=== PATIENT | male | born 1960 | race Hispanic/Latino ===

== ENCOUNTER 2023-03-24 10:48 | Inpatient (IN) | payer MEDICARE ==
[~2023-03-24 10:48] MED LIST: AMLODIPINE BESY10 MG PO; ATORVASTATIN CA20 MG PO; CARVEDILOL12.5 MG PO; CLOPIDOGREL75 MG PO; DOCUSATE SODIU100 MG PO; FOLIC ACID0.4 MG PO; FUROSEMIDE40 MG PO; HUMALOG MI100 UNIT/2 SQ; IRON PO; ISOSORBIDE DINI20 MG PO; LOSARTAN POTASS25 MG PO; MIRALAX17 GM PO; SEVELAMER CARB800 MG PO; TOUJEO SOL300 UNIT/1 SC; VITAMIN D3 COM1 EACH; [UNRECOGNIZED DRUG - OTHER] PO
[2023-03-24] MEDS ORDERED: SODIUM CHLORIDE 0.9% 500ML 500 ML ONE (11:02)
[2023-03-24] MEDS ORDERED: CEFAZOLIN SODIUM 2 GM ONE (11:03)
[2023-03-24 12:08] LABS: BASOPHILS # (AUTO) 0.1 (0.0-0.1); BASOPHILS % 0.9 % (0.0-1.0); EOSINOPHILS # (AUTO) 0.4 (0.0-0.4); EOSINOPHILS % 4.2 % (0.0-6.0); HEMATOCRIT 44.6 % (38.2-49.6); HEMOGLOBIN 14.4 g/dL (14.0-18.0); LYMPHOCYTES # (AUTO) 1.7 (1.0-3.2); LYMPHOCYTES % 19.9 % (18.0-39.1); MEAN CORPUSCULAR HGB CONC 32.3 g/dL (31-35); MEAN CORPUSCULAR VOLUME 92.9 fL (81-99); MONOCYTES # (AUTO) 0.7 (0.2-0.8); MONOCYTES % 7.9 % (4.4-11.3); NEUTROPHILS # (AUTO) 5.8 (2.1-6.9); NEUTROPHILS % 66.8 % (38.7-80.0); PLATELET COUNT 227 x10e3/uL (140-360); RED CELL DISTRIBUTION WIDTH 14.8 % (11.7-14.4)
[2023-03-24] MEDS ORDERED: MIDAZOLAM HCL 2 MG/2 ML VIAL ONE (12:24)
[2023-03-24] MEDS ORDERED: FENTANYL CITRATE/PF 100MCG/2 ML INJ ONE (12:24)
[2023-03-24 12:35] LABS: ALBUMIN 3.7 g/dL (3.5-5.0); ALBUMIN/GLOBULIN RATIO 1.2 (0.8-2.0); ANION GAP 14.1 mmol/L (8-16); CALCIUM 9.2 mg/dL (8.4-10.2); CREATININE, SERUM 5.47 mg/dL (0.72-1.25); POTASSIUM 5.1 mmol/L (3.5-5.1)
[2023-03-24] MEDS ORDERED: MANNITOL 20 % 500 ML BAG IV ONE (12:45)
[2023-03-24] MEDS ORDERED: HYDROMORPHONE 1MG/1ML INJ ONE (13:12)
[2023-03-24] MEDS ORDERED: ACETAMINOPHEN 1000 MG/100 ML 100 ML IV ONE (13:12)
[2023-03-24] MEDS ORDERED: PROPOFOL IV EMULSION 10 MG/ML 20 ML VIAL ONE (13:46)
[2023-03-24] MEDS ORDERED: GLYCOPYRROLATE INJ 0.2 MG/ML VIAL ONE (13:46)
[2023-03-24] MEDS ORDERED: NEOSTIGMINE 1 MG/ML 10ML VIAL ONE (13:46)
[2023-03-24] MEDS ORDERED: ONDANSETRON HCL INJ 2MG/ML 2ML 2 MG/ML VIAL ONE (13:46)
[2023-03-24] MEDS ORDERED: DEXAMETHASONE SOD PHOS INJ 4 MG/ML SDV ONE (13:46)
[2023-03-24] MEDS ORDERED: LIDOCAINE HCL 2% LOCAL INJ 5 ML SDV VIAL INJ ONE (13:46)
[2023-03-24] MEDS ORDERED: EPHEDRINE SULFATE INJ 50 MG/ML VIAL ONE (13:46)
[2023-03-24] MEDS ORDERED: POVIDONE IODINE 0.05% 0.05 % ML PO ONE (13:46)
[2023-03-24] MEDS ORDERED: DESFLURANE 240 ML BTL INH ONE (13:46)
[2023-03-24] MEDS ORDERED: ROCURONIUM BROMIDE 10 MG/ML 5ML VIAL IV ONE (13:46)
[2023-03-24] MEDS ORDERED: ONDANSETRON HCL INJ 2MG/ML 2ML 2 MG/ML VIAL IV PRN (15:45)
[2023-03-24] MEDS ORDERED: NALOXONE HCL INJ 0.4 MG/ML AMP IV PRN (15:45)
[2023-03-24] MEDS ORDERED: DIPHENHYDRAMINE HCL INJ 50 MG/ML VIAL IM PRN (15:45)
[2023-03-24] MEDS ORDERED: ACETAMINOPHEN 1000 MG/100 ML IV PRN (15:45)
[2023-03-24] MEDS: HYDROMORPHONE 0.2MG/ML-SOD CHL 30ML PCA SYRINGE IV PRN (15:50)
[2023-03-24] MEDS: HYDROMORPHONE 1MG/1ML INJ ONE ×5 (16:06→16:37)
[2023-03-24] MEDS: HYDRALAZINE HCL 20 MG/ML VIAL ONE ×2 (16:13→16:21)
[2023-03-24 16:30] LABS: BASOPHILS # (AUTO) 0.1 (0.0-0.1); BASOPHILS % 0.5 % (0.0-1.0); EOSINOPHILS # (AUTO) 0.2 (0.0-0.4); EOSINOPHILS % 1.5 % (0.0-6.0); HEMATOCRIT 45.6 % (38.2-49.6); HEMOGLOBIN 14.6 g/dL (14.0-18.0); LYMPHOCYTES # (AUTO) 1.6 (1.0-3.2); LYMPHOCYTES % 10.5 % (18.0-39.1); MEAN CORPUSCULAR HEMOGLOBIN 29.9 pg (28-32); MEAN CORPUSCULAR VOLUME 93.3 fL (81-99); MONOCYTES # (AUTO) 0.3 (0.2-0.8); NEUTROPHILS # (AUTO) 12.5 (2.1-6.9); PLATELET COUNT 233 x10e3/uL (140-360); RED BLOOD COUNT 4.89 x10e6/uL (4.3-5.7)
[2023-03-24] MEDS ORDERED: METOCLOPRAMIDE HCL 10 MG/2ML VIAL ONE (16:32)
[2023-03-24] MEDS ORDERED: ONDANSETRON HCL INJ 2MG/ML 2ML 2 MG/ML VIAL IV ONE (16:32)
[2023-03-24 16:45] LABS: ANION GAP 15.8 mmol/L (8-16); CALCIUM 8.9 mg/dL (8.4-10.2); CREATININE, SERUM 5.56 mg/dL (0.72-1.25); POTASSIUM 4.8 mmol/L (3.5-5.1)
[2023-03-24] MEDS: SODIUM CHLORIDE 0.9% 1000ML 1,000 ML IV SCH (17:20)
[2023-03-24] MEDS: SODIUM CHLORIDE 0.9% 250ML IRRIG IR SCH ×3 (17:29→23:45)
[2023-03-24 17:35] VITALS: BP 167/79; PULSE 75; RESP 14; TEMP 97.4; O2SAT 100
[2023-03-24 17:40] VITALS: BP 167/79; PULSE 75; RESP 14; TEMP 97.4; O2SAT 100
[2023-03-24 20:00] VITALS: BP 165/77; PULSE 86; RESP 16; TEMP 97.5; O2SAT 97
[2023-03-24] MEDS: HYDRALAZINE HCL 20 MG/ML VIAL IV SCH (22:17)
[2023-03-25] VITALS (8 sets, daily range): BP systolic 146–204; BP diastolic 74–86; PULSE 86–97; RESP 16–22; TEMP 97.8–98.9; O2SAT 96–99
[2023-03-25] MEDS: HYDROMORPHONE 0.2MG/ML-SOD CHL 30ML PCA SYRINGE IV PRN ×2 (01:51→16:16)
[2023-03-25] MEDS: SODIUM CHLORIDE 0.9% 1000ML 1,000 ML IV SCH ×2 (04:08→04:10)
[2023-03-25] MEDS: SODIUM CHLORIDE 0.9% 250ML IRRIG IR SCH ×2 (04:11→07:45)
[2023-03-25 04:40] LABS: BASOPHILS % 0.2 % (0.0-1.0); HEMATOCRIT 43.1 % (38.2-49.6); HEMOGLOBIN 13.5 g/dL (14.0-18.0); LYMPHOCYTES % 7.5 % (18.0-39.1); MEAN CORPUSCULAR HEMOGLOBIN 29.8 pg (28-32); MEAN CORPUSCULAR HGB CONC 31.3 g/dL (31-35); MEAN CORPUSCULAR VOLUME 95.1 fL (81-99); MONOCYTES % 7.1 % (4.4-11.3); NEUTROPHILS # (AUTO) 11.6 (2.1-6.9); NEUTROPHILS % 84.8 % (38.7-80.0); PLATELET COUNT 259 x10e3/uL (140-360); RED BLOOD COUNT 4.53 x10e6/uL (4.3-5.7); RED CELL DISTRIBUTION WIDTH 14.9 % (11.7-14.4)
[2023-03-25 05:00] LABS: ANION GAP 18.3 mmol/L (8-16); CALCIUM 8.7 mg/dL (8.4-10.2); CREATININE, SERUM 6.2 mg/dL (0.72-1.25); POTASSIUM 5.3 mmol/L (3.5-5.1)
[2023-03-25] MEDS: HYDRALAZINE HCL 20 MG/ML VIAL IV SCH ×3 (06:00→21:02)
[2023-03-25] MEDS ORDERED: ONDANSETRON HCL INJ 2MG/ML 2ML 2 MG/ML VIAL IV PRN (08:45)
[2023-03-25] MEDS: SENNA-S TABLET PO SCH ×2 (09:51→16:48)
[2023-03-25] MEDS ORDERED: POLYETHYLENE GLYCOL 3350 17 GM PACK PO PRN (16:00)
[2023-03-25] MEDS: GENTAMICIN SULFATE 15 GM CR TP SCH (16:30)
[2023-03-25] MEDS: ISOSORBIDE DINITRATE 20 MG TAB PO SCH (16:47)
[2023-03-25] MEDS: AMLODIPINE BESYLATE 10 MG TAB PO SCH (16:48)
[2023-03-25] MEDS: LOSARTAN POTASSIUM 25 MG TAB PO SCH (16:48)
[2023-03-25] MEDS: CARVEDILOL 12.5 MG TAB PO SCH (23:00)
[2023-03-25] MEDS: ATORVASTATIN 40 MG TAB PO SCH (23:01)
[2023-03-26] VITALS (7 sets, daily range): BP systolic 157–201; BP diastolic 69–82; PULSE 89–113; RESP 18–19; TEMP 98.3–99.5; O2SAT 95–98
[2023-03-26] MEDS ORDERED: PROMETHAZINE 12.5MG/ NACL 0.9% 12.5 MG/50 ML BAG IV PRN
[2023-03-26] MEDS: HYDRALAZINE HCL 20 MG/ML VIAL IV PRN ×3 (00:26→16:39)
[2023-03-26] MEDS: HYDRALAZINE HCL 20 MG/ML VIAL IV SCH ×3 (05:01→21:36)
[2023-03-26 05:02] LABS: BASOPHILS % 0.1 % (0.0-1.0); HEMATOCRIT 42.5 % (38.2-49.6); HEMOGLOBIN 13.7 g/dL (14.0-18.0); LYMPHOCYTES # (AUTO) 0.7 (1.0-3.2); LYMPHOCYTES % 4.9 % (18.0-39.1); MEAN CORPUSCULAR HGB CONC 32.2 g/dL (31-35); MEAN CORPUSCULAR VOLUME 93.2 fL (81-99); MONOCYTES # (AUTO) 1.2 (0.2-0.8); MONOCYTES % 8.4 % (4.4-11.3); NEUTROPHILS # (AUTO) 12.6 (2.1-6.9); NEUTROPHILS % 86.1 % (38.7-80.0); PLATELET COUNT 227 x10e3/uL (140-360); RED BLOOD COUNT 4.56 x10e6/uL (4.3-5.7); RED CELL DISTRIBUTION WIDTH 15.6 % (11.7-14.4)
[2023-03-26 05:21] LABS: ANION GAP 16.5 mmol/L (8-16); CALCIUM 9.1 mg/dL (8.4-10.2); CREATININE, SERUM 6.7 mg/dL (0.72-1.25); POTASSIUM 4.5 mmol/L (3.5-5.1)
[2023-03-26] MEDS: CARVEDILOL 12.5 MG TAB PO SCH ×2 (08:03→21:37)
[2023-03-26] MEDS: AMLODIPINE BESYLATE 10 MG TAB PO SCH (08:04)
[2023-03-26] MEDS: ISOSORBIDE DINITRATE 20 MG TAB PO SCH (08:04)
[2023-03-26] MEDS: FUROSEMIDE 40 MG TAB PO SCH (08:04)
[2023-03-26] MEDS: LOSARTAN POTASSIUM 25 MG TAB PO SCH (08:05)
[2023-03-26] MEDS: SENNA-S TABLET PO SCH ×2 (08:06→16:39)
[2023-03-26] MEDS: DOCUSATE SODIUM 100 MG CAP PO SCH (08:06)
[2023-03-26] MEDS: GENTAMICIN SULFATE 15 GM CR TP SCH (08:10)
[2023-03-26] MEDS ORDERED: DEXTROSE 50% SYRINGE 50 ML IV PRN (08:45)
[2023-03-26] MEDS ORDERED: INSULIN GLARGINE 100 UNITS/ML VIAL SQ ONE (09:30)
[2023-03-26] MEDS: METOCLOPRAMIDE HCL 10 MG/2ML VIAL IV SCH ×3 (09:55→21:35)
[2023-03-26] MEDS: INSULIN LISPRO 100 UNIT/1 ML 3ML VIAL SQ SCH ×3 (12:59→21:49)
[2023-03-26] MEDS ORDERED: SODIUM CHLORIDE 0.9% 250ML 250 ML ONE (19:46)
[2023-03-26] MEDS: ATORVASTATIN 40 MG TAB PO SCH (21:36)
[2023-03-26] MEDS: INSULIN GLARGINE 100 UNITS/ML VIAL SQ SCH (21:48)
[2023-03-27] VITALS (8 sets, daily range): BP systolic 145–176; BP diastolic 58–78; PULSE 78–86; RESP 17–19; TEMP 98–99.3; O2SAT 93–97
[2023-03-27 04:56] LABS: BASOPHILS % 0.5 % (0.0-1.0); EOSINOPHILS # (AUTO) 0.1 (0.0-0.4); EOSINOPHILS % 0.7 % (0.0-6.0); HEMATOCRIT 40.4 % (38.2-49.6); HEMOGLOBIN 12.8 g/dL (14.0-18.0); LYMPHOCYTES # (AUTO) 1.4 (1.0-3.2); MEAN CORPUSCULAR HGB CONC 31.7 g/dL (31-35); MEAN CORPUSCULAR VOLUME 94.8 fL (81-99); MONOCYTES # (AUTO) 1.2 (0.2-0.8); MONOCYTES % 8.8 % (4.4-11.3); NEUTROPHILS # (AUTO) 10.3 (2.1-6.9); NEUTROPHILS % 78.6 % (38.7-80.0); PLATELET COUNT 215 x10e3/uL (140-360); RED BLOOD COUNT 4.26 x10e6/uL (4.3-5.7); RED CELL DISTRIBUTION WIDTH 15.5 % (11.7-14.4)
[2023-03-27 04:57] LABS: BASOPHILS # (AUTO) 0.1 (0.0-0.1)
[2023-03-27 05:16] LABS: ALBUMIN 2.9 g/dL (3.5-5.0); ANION GAP 16.2 mmol/L (8-16); CALCIUM 8.8 mg/dL (8.4-10.2); CREATININE, SERUM 7.61 mg/dL (0.72-1.25); POTASSIUM 4.2 mmol/L (3.5-5.1)
[2023-03-27] MEDS: METOCLOPRAMIDE HCL 10 MG/2ML VIAL IV SCH ×3 (05:23→21:44)
[2023-03-27] MEDS: HYDRALAZINE HCL 20 MG/ML VIAL IV SCH ×3 (05:23→21:38)
[2023-03-27] MEDS: DOCUSATE SODIUM 100 MG CAP PO SCH (08:54)
[2023-03-27] MEDS: CARVEDILOL 12.5 MG TAB PO SCH ×2 (08:55→21:37)
[2023-03-27] MEDS: LOSARTAN POTASSIUM 100 MG TAB PO SCH (08:56)
[2023-03-27] MEDS: FUROSEMIDE 40 MG TAB PO SCH (08:56)
[2023-03-27] MEDS: SENNA-S TABLET PO SCH ×2 (08:57→17:22)
[2023-03-27] MEDS: ISOSORBIDE DINITRATE 20 MG TAB PO SCH ×2 (08:58→17:21)
[2023-03-27] MEDS: GENTAMICIN SULFATE 15 GM CR TP SCH (09:00)
[2023-03-27] MEDS: INSULIN LISPRO 100 UNIT/1 ML 3ML VIAL SQ SCH ×4 (09:02→21:55)
[2023-03-27] MEDS: NIFEDIPINE CR 30 MG TAB PO SCH (09:37)
[2023-03-27] MEDS: HYDROMORPHONE 1MG/1ML INJ IV PRN ×2 (15:42→21:39)
[2023-03-27] MEDS: ATORVASTATIN 40 MG TAB PO SCH (21:36)
[2023-03-27] MEDS: INSULIN GLARGINE 100 UNITS/ML VIAL SQ SCH (21:54)
[2023-03-28] VITALS (9 sets, daily range): BP systolic 125–149; BP diastolic 62–70; PULSE 61–81; RESP 16–19; TEMP 98–99.1; O2SAT 95–100
[2023-03-28] MEDS: HYDROMORPHONE 1MG/1ML INJ IV PRN ×4 (02:56→19:42)
[2023-03-28 04:55] LABS: BASOPHILS # (AUTO) 0.1 (0.0-0.1); BASOPHILS % 0.5 % (0.0-1.0); EOSINOPHILS # (AUTO) 0.3 (0.0-0.4); EOSINOPHILS % 2.6 % (0.0-6.0); HEMATOCRIT 36.6 % (38.2-49.6); HEMOGLOBIN 11.4 g/dL (14.0-18.0); LYMPHOCYTES # (AUTO) 1.3 (1.0-3.2); LYMPHOCYTES % 11.8 % (18.0-39.1); MEAN CORPUSCULAR HEMOGLOBIN 29.2 pg (28-32); MEAN CORPUSCULAR HGB CONC 31.1 g/dL (31-35); MEAN CORPUSCULAR VOLUME 93.6 fL (81-99); MONOCYTES # (AUTO) 0.9 (0.2-0.8); MONOCYTES % 7.8 % (4.4-11.3); NEUTROPHILS # (AUTO) 8.4 (2.1-6.9); NEUTROPHILS % 76.8 % (38.7-80.0); PLATELET COUNT 213 x10e3/uL (140-360); RED BLOOD COUNT 3.91 x10e6/uL (4.3-5.7); RED CELL DISTRIBUTION WIDTH 14.9 % (11.7-14.4)
[2023-03-28] MEDS: HYDRALAZINE HCL 20 MG/ML VIAL IV SCH (05:13)
[2023-03-28] MEDS: METOCLOPRAMIDE HCL 10 MG/2ML VIAL IV SCH ×3 (05:14→19:44)
[2023-03-28 05:17] LABS: CALCIUM 8.2 mg/dL (8.4-10.2); CREATININE, SERUM 8.12 mg/dL (0.72-1.25)
[2023-03-28] MEDS: TRAMADOL HCL 50 MG TAB PO PRN ×2 (05:25→16:55)
[2023-03-28] MEDS ORDERED: SODIUM CHLORIDE 0.9% 100 ML ONE (08:15)
[2023-03-28] MEDS: DOCUSATE SODIUM 100 MG CAP PO SCH (08:17)
[2023-03-28] MEDS: NIFEDIPINE CR 30 MG TAB PO SCH (08:17)
[2023-03-28] MEDS: SENNA-S TABLET PO SCH ×2 (08:17→16:47)
[2023-03-28] MEDS: LOSARTAN POTASSIUM 100 MG TAB PO SCH (08:18)
[2023-03-28] MEDS: ISOSORBIDE DINITRATE 20 MG TAB PO SCH ×2 (08:19→16:48)
[2023-03-28] MEDS: CARVEDILOL 12.5 MG TAB PO SCH ×2 (08:19→19:43)
[2023-03-28] MEDS: FUROSEMIDE 40 MG TAB PO SCH (08:20)
[2023-03-28] MEDS: INSULIN LISPRO 100 UNIT/1 ML 3ML VIAL SQ SCH ×6 (08:50→19:43)
[2023-03-28] MEDS: GENTAMICIN SULFATE 15 GM CR TP SCH (09:00)
[2023-03-28] MEDS: HYDRALAZINE HCL 25 MG TAB PO SCH ×2 (13:17→16:49)
[2023-03-28] MEDS: BENZONATATE 100 MG CAP PO PRN (17:48)
[2023-03-28] MEDS: ATORVASTATIN 40 MG TAB PO SCH (19:43)
[2023-03-28] MEDS: INSULIN GLARGINE 100 UNITS/ML VIAL SQ SCH (20:01)
[2023-03-29] VITALS (11 sets, daily range): BP systolic 125–144; BP diastolic 62–79; PULSE 62–80; RESP 14–19; TEMP 97.3–98.5; O2SAT 95–100
[2023-03-29] MEDS: HYDRALAZINE HCL 25 MG TAB PO SCH ×4 (00:35→16:42)
[2023-03-29] MEDS: HYDROMORPHONE 1MG/1ML INJ IV PRN ×6 (01:01→20:57)
[2023-03-29] MEDS: METOCLOPRAMIDE HCL 10 MG/2ML VIAL IV SCH ×3 (05:04→21:03)
[2023-03-29 06:46] LABS: ANION GAP 14.7 mmol/L (8-16); CALCIUM 8.2 mg/dL (8.4-10.2); CREATININE, SERUM 8.25 mg/dL (0.72-1.25); POTASSIUM 3.7 mmol/L (3.5-5.1)
[2023-03-29] MEDS: DOCUSATE SODIUM 100 MG CAP PO SCH (08:07)
[2023-03-29] MEDS: NIFEDIPINE CR 30 MG TAB PO SCH (08:07)
[2023-03-29] MEDS: CARVEDILOL 12.5 MG TAB PO SCH ×2 (08:08→20:56)
[2023-03-29] MEDS: BENZONATATE 100 MG CAP PO PRN (08:08)
[2023-03-29] MEDS: ISOSORBIDE DINITRATE 20 MG TAB PO SCH ×2 (08:08→16:42)
[2023-03-29] MEDS: SENNA-S TABLET PO SCH ×2 (08:08→16:41)
[2023-03-29] MEDS: LOSARTAN POTASSIUM 100 MG TAB PO SCH (08:09)
[2023-03-29] MEDS: FUROSEMIDE 40 MG TAB PO SCH (08:11)
[2023-03-29] MEDS: INSULIN LISPRO 100 UNIT/1 ML 3ML VIAL SQ SCH ×7 (08:21→20:18)
[2023-03-29] MEDS: GENTAMICIN SULFATE 15 GM CR TP SCH (09:00)
[2023-03-29] MEDS: ATORVASTATIN 40 MG TAB PO SCH (20:55)
[2023-03-29] MEDS: INSULIN GLARGINE 100 UNITS/ML VIAL SQ SCH (21:00)
[2023-03-30] VITALS (9 sets, daily range): BP systolic 121–155; BP diastolic 59–80; PULSE 71–76; RESP 17–20; TEMP 97.7–98.4; O2SAT 96–99
[2023-03-30] MEDS: HYDROMORPHONE 1MG/1ML INJ IV PRN ×5 (01:27→19:56)
[2023-03-30] MEDS: METOCLOPRAMIDE HCL 10 MG/2ML VIAL IV SCH ×3 (05:39→21:16)
[2023-03-30] MEDS: HYDRALAZINE HCL 25 MG TAB PO SCH ×4 (05:49→17:38)
[2023-03-30] MEDS: NIFEDIPINE CR 30 MG TAB PO SCH (08:21)
[2023-03-30] MEDS: CARVEDILOL 12.5 MG TAB PO SCH ×2 (08:22→21:17)
[2023-03-30] MEDS: LOSARTAN POTASSIUM 100 MG TAB PO SCH (08:22)
[2023-03-30] MEDS: DOCUSATE SODIUM 100 MG CAP PO SCH (08:23)
[2023-03-30] MEDS: FUROSEMIDE 40 MG TAB PO SCH (08:23)
[2023-03-30] MEDS: ISOSORBIDE DINITRATE 20 MG TAB PO SCH ×2 (08:23→16:34)
[2023-03-30] MEDS: GENTAMICIN SULFATE 15 GM CR TP SCH (08:23)
[2023-03-30] MEDS: SENNA-S TABLET PO SCH ×2 (08:23→16:34)
[2023-03-30] MEDS: INSULIN LISPRO 100 UNIT/1 ML 3ML VIAL SQ SCH ×7 (08:32→19:45)
[2023-03-30] MEDS ORDERED: FUROSEMIDE 40 MG TAB PO SCH (16:00)
[2023-03-30 16:42] LABS: ANION GAP 16.5 mmol/L (8-16); CALCIUM 8.3 mg/dL (8.4-10.2); CREATININE, SERUM 8.8 mg/dL (0.72-1.25); POTASSIUM 4.5 mmol/L (3.5-5.1)
[2023-03-30] MEDS: SODIUM BICARBONATE 650 MG TAB PO SCH (17:37)
[2023-03-30] MEDS: ATORVASTATIN 40 MG TAB PO SCH (21:17)
[2023-03-30] MEDS: INSULIN GLARGINE 100 UNITS/ML VIAL SQ SCH (21:22)
[2023-03-31] MEDS: HYDROMORPHONE 1MG/1ML INJ IV PRN ×3 (00:10→15:05)
[2023-03-31 00:45] VITALS: BP 133/65; PULSE 76; RESP 18; TEMP 98.7; O2SAT 98
[2023-03-31] MEDS: HYDRALAZINE HCL 25 MG TAB PO SCH ×4 (00:56→16:51)
[2023-03-31] MEDS: HYDRALAZINE HCL 20 MG/ML VIAL IV PRN (04:18)
[2023-03-31 04:37] VITALS: BP 151/66; PULSE 72; RESP 18; TEMP 98.7; O2SAT 100
[2023-03-31 04:51] LABS: BASOPHILS % 0.5 % (0.0-1.0); EOSINOPHILS # (AUTO) 0.5 (0.0-0.4); HEMATOCRIT 34.4 % (38.2-49.6); LYMPHOCYTES # (AUTO) 1.4 (1.0-3.2); LYMPHOCYTES % 17.7 % (18.0-39.1); MEAN CORPUSCULAR HEMOGLOBIN 29.3 pg (28-32); MEAN CORPUSCULAR VOLUME 91.5 fL (81-99); MONOCYTES # (AUTO) 0.8 (0.2-0.8); NEUTROPHILS # (AUTO) 5.3 (2.1-6.9); NEUTROPHILS % 65.2 % (38.7-80.0); PLATELET COUNT 267 x10e3/uL (140-360); RED BLOOD COUNT 3.76 x10e6/uL (4.3-5.7); RED CELL DISTRIBUTION WIDTH 14.4 % (11.7-14.4)
[2023-03-31 05:20] LABS: ANION GAP 15.2 mmol/L (8-16); CALCIUM 7.9 mg/dL (8.4-10.2); CREATININE, SERUM 8.84 mg/dL (0.72-1.25); POTASSIUM 4.2 mmol/L (3.5-5.1)
[2023-03-31] MEDS: METOCLOPRAMIDE HCL 10 MG/2ML VIAL IV SCH ×2 (06:31→14:00)
[2023-03-31 08:32] VITALS: BP 141/63; PULSE 75; RESP 16; TEMP 98.4; O2SAT 97
[2023-03-31] MEDS: SENNA-S TABLET PO SCH ×2 (08:40→10:26)
[2023-03-31] MEDS: DOCUSATE SODIUM 100 MG CAP PO SCH (08:40)
[2023-03-31] MEDS: NIFEDIPINE CR 30 MG TAB PO SCH ×2 (08:41→10:27)
[2023-03-31] MEDS: SODIUM BICARBONATE 650 MG TAB PO SCH ×2 (08:41→10:28)
[2023-03-31] MEDS: CARVEDILOL 12.5 MG TAB PO SCH ×2 (08:42→10:29)
[2023-03-31] MEDS: TRAMADOL HCL 50 MG TAB PO PRN (08:42)
[2023-03-31] MEDS: ISOSORBIDE DINITRATE 20 MG TAB PO SCH ×2 (08:43→10:26)
[2023-03-31] MEDS: INSULIN LISPRO 100 UNIT/1 ML 3ML VIAL SQ SCH ×6 (08:54→16:58)
[2023-03-31 08:55] VITALS: BP 141/63; PULSE 75; RESP 16; TEMP 98.4; O2SAT 97
[2023-03-31] MEDS ORDERED: ASPIRIN 81 MG ENTERIC COATED PO SCH (09:00)
[2023-03-31] MEDS: GENTAMICIN SULFATE 15 GM CR TP SCH (09:00)
[2023-03-31] MEDS: FUROSEMIDE 40 MG TAB PO SCH (10:27)
[2023-03-31 11:53] VITALS: BP 149/70; PULSE 75; RESP 18; TEMP 98.4; O2SAT 98
[2023-03-31 15:33] VITALS: BP 106/58; PULSE 70; RESP 14; TEMP 98.3; O2SAT 98
[2023-03-31] MEDS ORDERED: ONDANSETRON HCL 4 MG ORAL DISINTEGRATING TAB PO PRN (17:45)
[2023-03-31] MEDS ORDERED: METOCLOPRAMIDE HCL 10 MG TAB PO SCH (18:00)
[2023-04-01] MEDS ORDERED: PANTOPRAZOLE SOD 40 MG TABEC PO SCH (07:30)
== END 2023-03-31 19:43 | disposition home or self-care (01) | DRG 656 ==
LOC: OR 10:48 → PACU V 15:34 → MED/SURG 17:05
PROVIDERS: ADMIT Internal Medicine; ATTEND Internal Medicine
PROC: 0TT10ZZ Resection of Left Kidney, Open Approach (ICD-10-PCS; principal; 2023-03-24 13:17)
PROC: 5A1D80Z Performance of Urinary Filtration, Prolonged Intermittent, 6-18 hours Per Day (ICD-10-PCS; 2023-03-25)
PROC: 5A1D80Z Performance of Urinary Filtration, Prolonged Intermittent, 6-18 hours Per Day (ICD-10-PCS; 2023-03-28)
PROC: 5A1D80Z Performance of Urinary Filtration, Prolonged Intermittent, 6-18 hours Per Day (ICD-10-PCS; 2023-03-29)
DX: C64.2 Malignant neoplasm of left kidney, except renal pelvis (principal); N18.6 End stage renal disease; I12.0 Hypertensive chronic kidney disease with stage 5 chronic kidney disease or end stage renal disease; I16.0 Hypertensive urgency; Z99.2 Dependence on renal dialysis; I25.10 Atherosclerotic heart disease of native coronary artery without angina pectoris; Z95.5 Presence of coronary angioplasty implant and graft; I25.2 Old myocardial infarction; E66.9 Obesity, unspecified
CPT/HCPCS: 0223U; 36415; 71045; 71046; 80048; 80053; 82550; 82553; 82948; 83735; 84484; 85025; 86850; 86900; 88304; 88307; 88342; 93005; 94799; 96372; J0690; J1100; J1170; J1815; J2001; J2250; J2405; J2550; J2710; J2765; J7030; J7040; J7050